=== PATIENT | male | born 1970 | race Caucasian/White ===

== ENCOUNTER 2024-01-05 12:50 | Outpatient (RCR) | payer MEDICARE, OTHER, SELFPAY ==
--- NOTE | 2024-01-05 14:02 | OPREHPOC ---
Outpatient Therapy Plan of Care This is a Multidisciplinary Plan of Care that may contain components documented by all disciplines (PT, OT, and ST.) PT Problem 1 PT Problem #1 Knowledge Deficit PT Goal 1 Goal 1. independent and compliant with HEP Target Visit 6 PT Problem 2 PT Problem #2 Impaired Strength PT Goal 1 Goal 1. improve bilateral hip strength to 4+/5 or better 2. improve bilateral knee strength to 5/5 3. improve bilateral ankle DF to 5/5 4. patient to perform 10 single leg heel raises bilaterally Target Visit 12 PT Problem 3 PT Problem #3 Impaired Gait PT Goal 1 Goal 1. patient to ambulate with step through mechanics and full clearance of feet from floor 2. patient to ambulate 1200ft or more in 6 minute walk test PT Problem 4 PT Problem #4 Impaired Functional Mobil PT Goal 1 Goal 1. 5x sit to stand to be completed in under 15 seconds 2. TUG to be completed in 12 seconds or less 3. tinetti to display moderate fall risk or less 4. patient to achieve tandem stance bilaterally without LOB without UE assist Target Visit 12
--- NOTE | 2024-01-05 14:02 | PTOPEVAL1 ---
Assessment and note entered by JT File, PT Evaluation Information Assessment Status Evaluation Diagnosis intracranial bleed Subjective Information patient reports he fell about 3-4 weeks ago and got a brain bleed. he reports since his fall it has been rough going. he reports he struggles to keep his balance. he reports he was in the hospital for 3ish weeks. he reports he has had no falls since leaving the hospital. Reported Pain Level Pain Score 0: Self Report Assessment PT Clinical Summary mr. salgado is a 53 yo man who presents to skilled PT services for evaluation and treatment of weakness and unsteady gait. he had a fall that caused a bleed in the brain about 3-4 weeks ago. since then, he has been more unsteady on his feet and weak. he presents with LE weakness, high fall risk, deficits in ambulation mechanics, and decreased endurance. continued skilled PT is indicated to improve his objective/functional deficits and return to his prior level stability and functional activity performance to improve his quality of life. Plan of Care Interventions Gait Training,Neuro Re-education,Patient/Caregiver Educati,Therapeutic Activities,Therapeutic Exercise PT Services Indicated Yes Treatment Frequency and 3x weekly for 12 visits Duration These treatments will address the objective and functional deficits as defined above. The patient will be advanced safely and appropriately in order for the patient to progress towards his/her prior level of function. Additional exercises will be introduced and as well as a comprehensive home exercise program upon discharge, if needed, ?to ensure carryover of functional gains achieved in the clinic. This treatment plan has been reviewed and agreement upon by the patient.
--- NOTE | 2024-01-08 13:54 | BUOTOPEVAL ---
Assessment and note entered by Sonja Ahumada OT Evaluation Information Assessment Status Evaluation Diagnosis Intracranial hemorrhage Onset 01/04/24 Subjective Information The patient reports that he is independent at home with all ADLs and transfers without AE. He stated he wants to get to where he can get into the bathtub again. He reports no difficulties with daily tasks and says he gets a little tired at home but not too bad. Reported Pain Level Pain Score 0: Self Report Assessment OT Clinical Summary The patient is a 69 year old male who was referred to outpatient OT due to brain bleed leading to loss of muscle strength and endurance. The patient demonstrates significant UE weakness and low endurance with weakness in B hands as well. The patient previously was independent with all ADLs/ IADLs with no issues of endurance and strength. The patient requires skilled OT to address these deficits and return to PLOF and maintain independence. Plan of Care Interventions Therapeutic Exercise,Neuro Re-education, Therapeutic Activities,Hot Pack/Cold Pack, Electrical Stimulation,Self-Care/Home Management OT Services Indicated Yes Treatment Frequency and 2x/week for 10 visits. Duration These treatments will address the objective and functional deficits as defined above. The patient will be advanced safely and appropriately in order for the patient to progress towards his/her prior level of function. Additional exercises will be introduced and as well as a comprehensive home exercise program upon discharge, if needed, ?to ensure carryover of functional gains achieved in the clinic. This treatment plan has been reviewed and agreement upon by the patient.
--- NOTE | 2024-02-09 15:28 | OPREHPOC ---
Outpatient Therapy Plan of Care This is a Multidisciplinary Plan of Care that may contain components documented by all disciplines (PT, OT, and ST.) PT Problem 1 PT Problem #1 Knowledge Deficit PT Goal 1 Goal 1. independent and compliant with HEP Target Visit 6 Progress Met PT Problem 2 PT Problem #2 Impaired Strength PT Goal 1 Goal 1. improve bilateral hip strength to 4+/5 or better 2. improve bilateral knee strength to 5/5 3. improve bilateral ankle DF to 5/5 4. patient to perform 10 single leg heel raises bilaterally Target Visit 12 Progress Met PT Problem 3 PT Problem #3 Impaired Gait PT Goal 1 Goal 1. patient to ambulate with step through mechanics and full clearance of feet from floor -partially met (heel still drags) 2. patient to ambulate 1200ft or more in 6 minute walk test -met Progress Partially Met PT Problem 4 PT Problem #4 Impaired Functional Mobil PT Goal 1 Goal 1. 5x sit to stand to be completed in under 15 seconds 2. TUG to be completed in 12 seconds or less 3. tinetti to display moderate fall risk or less 4. patient to achieve tandem stance bilaterally without LOB without UE assist Target Visit 12 Progress Met OT Problem 1 OT Problem #1 Knowledge Deficit OT Goal 1 Goal The patient will demonstrate 100% knowledge and return demonstration for UE HEP in order to maintain strength at home. Target Visit 10 OT Problem 2 OT Problem #2 Impaired Endurance OT Goal 1 Goal The patient will demonstrate >15 minutes of endurance performing ADLs and daily tasks without reports of fatigue or need of rest break. 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
--- NOTE | 2024-02-09 15:28 | PTOPDC ---
Assessment and note entered by Madeleine Cardenas, PT Evaluation Information Assessment Status Discharge Diagnosis intracranial bleed Onset 01/04/24 Subjective Information Theo Urbina reports he is doing better since initiating PT. He feels he is walking better and farther and he notes better balance and strength. He denies falls. He does occasionally have to take stairs one at a time but most of the time he takes them step over step. He denies pain today or any time. Reported Pain Level Pain Score 0: Self Report Pain Score 0: Self Report Assessment PT Clinical Summary Theo Urbina has completed 12 skilled PT visits following an intracranial bleed. Treatment has focused on strength, balance, gait, and endurance training. He is reporting improved balance, better ability to walk, and improved strength. He objectively demonstrates decreased times on his TUG and 5 time sit to stand test, improved score on the Tinetti Balance Scale, improved distance on his 6 minute walk test, improved gait, and improved LE strength. He will be discharged to an independent home exercise program. Plan of Care PT Services Indicated No
--- NOTE | 2024-02-12 11:00 | BUOTOPDC ---
Assessment and note entered by Sonja Ahumada, OT Evaluation Information Assessment Status Discharge Diagnosis Intracranial hemorrhage Onset 01/04/24 Subjective Information The patient stated that he feels stronger and he has been doing more around his house and yard. He reports that he is careful when he is out with animals and feels like his balance and endurance have improved since SOC. Reported Pain Level Pain Score 0: Self Report Pain Score 0: Self Report Pain Score 0: Self Report Pain Score 0: Self Report Pain Score 0: Self Report Pain Score 0: Self Report Pain Score 0: Self Report Pain Score 0: Self Report Pain Score 0: Self Report Pain Score 0: Self Report Pain Score 0: Self Report Pain Score 0: Self Report Pain Score 0: Self Report Pain Score 0: Self Report Pain Score 0: Self Report Pain Score 0: Self Report Pain Score 0: Self Report Pain Score 0: Self Report Pain Score 0: Self Report Pain Score 0: Self Report Pain Score 0: Self Report Pain Score 0: Self Report Assessment OT Clinical Summary The patient demonstrates significant progress in UE strength, 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 The patient demonstrates increased strength in B UE and good endurance to perform morning routine without the need for rest breaks or demonstrating shortness of breath. The patient is discharged this date due to meeting all goals. Plan of Care Interventions Therapeutic Exercise,Neuro Re-education, Therapeutic Activities,Hot Pack/Cold Pack, Electrical Stimulation,Self-Care/Home Management OT Services Indicated No Treatment Frequency and 2x/week for 10 visits. Duration
== END 2024-02-12 20:00 | disposition home or self-care (01) ==
LOC: CHSPT 12:50
DX: I62.9 Nontraumatic intracranial hemorrhage, unspecified (principal)
CPT/HCPCS: 97110; 97112; 97161; 97165; 97530; 97750